=== PATIENT | female | born 1960 | race Caucasian/White ===

== ENCOUNTER 2016-11-14 17:38 | Observation (INO) | payer OTHER ==
[~2016-11-14] VITALS: Ht 167.6 cm; Wt 135.4 kg
[~2016-11-14 17:38] MED LIST: ACID REDUCER 1150 MG PO; AMARYL4 MG PO; ASPIRIN E.C.81 M1 PO; AUGMENTIN875 MG PO; Calcium Carbonate,Ca PO; Colace PO; DAILY VITAMIN1 EAC8 PO; Ditropan PO; GLIMEPIRIDE4 MG PO; KEFLEX500 MG PO; LEVEMIR INSULIN SQ; LEVEMIR100 UNIT/2 SC; LISINOPRIL20 MG PO; LO-DOSE ASPIRIN81 M1 PO; METFORMIN HCL500 MG PO; MULTIPLE VITAM1 EAC1 PO; PERCOCET 5/31 TABLET PO; PRAVASTATIN SOD40 MG PO; Pravachol PO; STOOL SOFTENER100 MG PO; TOFRANIL50 MG PO; Zantac PO; Zestril,Prinivil PO
[2016-11-14 18:27] LABS: HEMATOCRIT 34.9 % (36.0-46.0); MCH 29.6 PG (29.0-34.0); MCHC 34.4 G/DL (30.0-36.0); MCV 86.2 FL (83-99); MEAN PLAT.VOLUME 9.8 uM^3 (9.5-12.4); PLATELET COUNT 322 K/uL (156-360); RBC DIS.WIDTH-CV 13.7 % (11.8-14.6); RBC DIS.WIDTH-SD 42.2 % (39-53); RED BLOOD COUNT 4.05 M/uL (3.80-5.20); WHITE BLOOD COUNT 6.5 K/uL (4.1-10.2)
[2016-11-14 18:33] LABS: CHLORIDE 105 mEq/L (99-109); POTASSIUM 4.6 mEq/L (3.7-5.4); SODIUM 136 mEq/L (136-147)
[2016-11-14 18:34] LABS: GLUCOSE 153 mg/dL (70-99)
[2016-11-14 18:36] LABS: ANION GAP 7 MEQ/L (2-14)
[2016-11-14 18:38] LABS: GFR ESTIMATE (CALCULATED) > 59 mL/min/
[2016-11-14 18:39] LABS: UREA NITROGEN (BUN) 29 mg/dL (9-23)
[2016-11-14 18:45] LABS: TROP-I INTERPRETATION NEGATIVE; TROPONIN-I < 0.01 ng/mL (0.0-0.30)
[2016-11-14] MEDS ORDERED: CALCIUM 600 +1 EAC8 PO (20:09)
[2016-11-14] MEDS ORDERED: AMITIZA24 MICROGR PO (20:10)
[2016-11-14] MEDS ORDERED: ZANTAC150 MG PO (20:10)
[2016-11-14] MEDS ORDERED: ASCORBIC ACID500 M3 PO (20:10)
[2016-11-14] MEDS ORDERED: HYZAAR 100-21 TABLET PO (20:11)
[2016-11-14] MEDS ORDERED: JENTADUETO 2.51 EAC2 PO (20:11)
[2016-11-14] MEDS ORDERED: NEURONTIN300 MG PO (20:12)
[2016-11-14] MEDS ORDERED: HYDROCODON-ACE1 EAC8 PO (20:13)
[2016-11-14] MEDS ORDERED: FISH OIL 1,0001 EAC7 PO (20:13)
[2016-11-15 00:03] LABS: POINT-OF-CARE METER ID UU13113700
[2016-11-15 00:54] VITALS: BP 180/86
[2016-11-15 01:06] VITALS: BP 152/76
[2016-11-15 01:59] LABS: TROP-I INTERPRETATION NEGATIVE; TROPONIN-I < 0.01 ng/mL (0.0-0.30)
[2016-11-15 04:14] VITALS: BP 120/58
[2016-11-15 06:28] LABS: EOSINOPHIL (%) 2.2 % (0-5); EOSINOPHIL COUNT 0.1 K/uL (0-0.3); HEMATOCRIT 33.7 % (36.0-46.0); IMMATURE GRANULOCYTE (%) 0.2 % (0.0-0.7); LYMPHOCYTE COUNT 2.2 K/uL (1.0-2.8); MCH 29.6 PG (29.0-34.0); MCHC 33.8 G/DL (30.0-36.0); MCV 87.5 FL (83-99); MEAN PLAT.VOLUME 10.6 uM^3 (9.5-12.4); MONOCYTE (%) 6.5 % (3-12); MONOCYTE COUNT 0.4 K/uL (0-0.8); NEUTROPHIL (%) 53.9 % (45-76); NEUTROPHIL COUNT 3.3 K/uL (1.8-6.4); PLATELET COUNT 296 K/uL (156-360); RED BLOOD COUNT 3.85 M/uL (3.80-5.20)
[2016-11-15 06:54] LABS: ALKALINE PHOSPHATASE 66 IU/L (3-129); ANION GAP 6 MEQ/L (2-14); CHLORIDE 105 MEQ/L (99-109); GFR ESTIMATE (CALCULATED) > 59 mL/min/; POTASSIUM 4.1 MEQ/L (3.7-5.4); SAMPLE HEMOLYSIS CHECK 0; SAMPLE ICTERIC CHECK 0; SAMPLE LIPEMIA CHECK 0; SODIUM 137 MEQ/L (136-147); TOTAL BILIRUBIN 0.3 MG/DL (0.0-1.0); UREA NITROGEN (BUN) 26 mg/dL (9-23)
[2016-11-15 06:57] LABS: GLUCOSE 113 mg/dL (70-99)
[2016-11-15 07:46] VITALS: BP 117/65
[2016-11-15 09:50] LABS: TROP-I INTERPRETATION NEGATIVE; TROPONIN-I < 0.01 ng/mL (0.0-0.30)
[2016-11-15 11:45] VITALS: BP 131/63
[2016-11-15 11:53] LABS: POINT-OF-CARE METER ID UU13113700
[2016-11-15 15:41] VITALS: BP 140/70
[2016-11-15 17:20] LABS: POINT-OF-CARE METER ID UU13113700
[2016-11-15] MEDS ORDERED: CARVEDILOL12.5 MG PO (18:16)
[2016-11-15 18:30] LABS: TROP-I INTERPRETATION NEGATIVE; TROPONIN-I < 0.01 ng/mL (0.0-0.30)
== END 2016-11-15 19:45 | disposition home or self-care (01) ==
LOC: RME 17:38 → EME 17:38 → 5WEST 21:47 → EDOF 21:47 → 5WEST 23:31
PROVIDERS: Internal Medicine
DX: R07.9 Chest pain, unspecified (principal); I10 Essential (primary) hypertension; E11.9 Type 2 diabetes mellitus without complications; E66.01 Morbid (severe) obesity due to excess calories; Z68.42 Body mass index [BMI] 45.0-49.9, adult; M19.90 Unspecified osteoarthritis, unspecified site; Z85.41 Personal history of malignant neoplasm of cervix uteri; Z90.710 Acquired absence of both cervix and uterus; Z79.4 Long term (current) use of insulin; Z79.82 Long term (current) use of aspirin
CPT/HCPCS: 71020; 80048; 80053; 82948; 84484; 85025; 85027; 93005; 99281; 99285; G0378; J1650; J1815

== ENCOUNTER 2017-06-09 13:49 | Emergency (ER) | payer OTHER ==
[~2017-06-09] VITALS: Ht 172.7 cm; Wt 142.7 kg
[~2017-06-09 13:49] MED LIST changes: +AMITIZA24 MICROGR PO; +ASCORBIC ACID500 M3 PO; +CALCIUM 600 +1 EAC8 PO; +CARVEDILOL12.5 MG PO; +FISH OIL 1,0001 EAC7 PO; +HYDROCODON-ACE1 EAC8 PO; +HYZAAR 100-21 TABLET PO; +JENTADUETO 2.51 EAC2 PO; +NEURONTIN300 MG PO; +ZANTAC150 MG PO
[2017-06-09 14:09] LABS: POINT-OF-CARE METER ID UU13113778
[2017-06-09 15:14] LABS: ADD MIUA? YES; BILIRUBIN NEGATIVE; BLOOD SMALL; COLOR YELLOW ((YELLOW)); GLUCOSE (STRIP) >=500; KETONES NEGATIVE; LEUKOCYTES TRACE; NITRITE NEGATIVE; PROTEIN (STRIP) >=500; SPECIFIC GRAVITY 1.013 (1.000-1.030); UROBILINOGEN 0.2 MG/DL (0.2-1.0)
[2017-06-09 15:18] LABS: BACTERIA RARE /HPF; CALCIUM OXALATE CRYSTALS 1+ /HPF; EPITHELIAL CELLS 1+ /HPF; MUCUS NONE SEEN /LPF; WHITE BLOOD CELLS 20-30 /HPF (0-5)
[2017-06-09] MEDS ORDERED: KEFLEX500 MG PO (15:32)
[2017-06-09] MEDS ORDERED: PYRIDIUM200 MG PO (15:32)
[2017-06-09 15:38] VITALS: BP 160/96
== END 2017-06-09 15:38 | disposition home or self-care (01) ==
LOC: EME 13:49
PROVIDERS: Physician Assistant
DX: K08.89 Other specified disorders of teeth and supporting structures (principal); N39.0 Urinary tract infection, site not specified; K21.9 Gastro-esophageal reflux disease without esophagitis; I10 Essential (primary) hypertension; E78.5 Hyperlipidemia, unspecified; E11.9 Type 2 diabetes mellitus without complications; Z90.710 Acquired absence of both cervix and uterus; Z85.42 Personal history of malignant neoplasm of other parts of uterus; Z79.82 Long term (current) use of aspirin
CPT/HCPCS: 81003; 82948; 99281; 99284

== ENCOUNTER 2017-08-29 16:15 | Inpatient (IN) | payer OTHER ==
[~2017-08-29] VITALS: Ht 167.6 cm; Wt 136.6 kg
[~2017-08-29 16:15] MED LIST changes: -NEURONTIN300 MG PO; +NEURONTIN600 MG PO; +PYRIDIUM200 MG PO
[2017-08-29 16:46] LABS: POINT-OF-CARE METER ID UU13113778
[2017-08-29 17:37] LABS: HEMATOCRIT 33.5 % (36.0-46.0); MCHC 32.5 G/DL (30.0-36.0); MCV 89.1 FL (83-99); MEAN PLAT.VOLUME 9.9 uM^3 (9.5-12.4); PLATELET COUNT 286 K/uL (156-360); RBC DIS.WIDTH-CV 14.4 % (11.8-14.6); RBC DIS.WIDTH-SD 46.9 % (39-53); RED BLOOD COUNT 3.76 M/uL (3.80-5.20); WHITE BLOOD COUNT 7.2 K/uL (4.1-10.2)
[2017-08-29 17:45] LABS: CHLORIDE 106 mEq/L (99-109); POTASSIUM 4.5 mEq/L (3.7-5.4); SODIUM 136 mEq/L (136-147)
[2017-08-29 17:47] LABS: GLUCOSE 244 mg/dL (70-99)
[2017-08-29 17:49] LABS: ANION GAP 9 MEQ/L (2-14)
[2017-08-29 17:51] LABS: GFR ESTIMATE (CALCULATED) 17 mL/min/
[2017-08-29 17:52] LABS: UREA NITROGEN (BUN) 35 mg/dL (9-23)
[2017-08-29 18:37] LABS: ADD MIUA? YES; BILIRUBIN NEGATIVE; BLOOD SMALL; COLOR YELLOW ((YELLOW)); GLUCOSE (STRIP) 50; KETONES NEGATIVE; LEUKOCYTES LARGE; NITRITE NEGATIVE; PROTEIN (STRIP) 100; SPECIFIC GRAVITY 1.017 (1.000-1.030); UROBILINOGEN 0.2 MG/DL (0.2-1.0)
[2017-08-29 19:21] LABS: BACTERIA 4+ /HPF; CASTS NONE SEEN /LPF; CRYSTALS NONE SEEN; EPITHELIAL CELLS 1+ /HPF; MUCUS NONE SEEN /LPF; RED BLOOD CELLS 0-5 /HPF (0-5); UCUL ADDED? YES; WHITE BLOOD CELLS TNTC /HPF (0-5)
[2017-08-29] MEDS ORDERED: IRBESARTAN-HCT1 EAC1 PO (20:51)
[2017-08-29] MEDS ORDERED: HYDROCODON-ACE1 EAC9 PO (20:52)
[2017-08-29] MEDS ORDERED: TORSEMIDE20 MG PO (20:52)
[2017-08-29] MEDS ORDERED: POTASSIUM CHLO10 ME4 PO (20:53)
[2017-08-29 20:54] LABS: POINT-OF-CARE METER ID UU14100415
[2017-08-29] MEDS ORDERED: OMEPRAZOLE40 M1 PO (20:54)
[2017-08-29] MEDS ORDERED: GABAPENTIN600 MG PO (20:54)
[2017-08-29] MEDS ORDERED: LOSARTAN-HCTZ1 EAC1 PO (20:55)
[2017-08-29] MEDS ORDERED: ATORVASTATIN CA20 MG PO (20:55)
[2017-08-29] MEDS ORDERED: CARVEDILOL25 MG PO (20:59)
[2017-08-29 21:58] LABS: POINT-OF-CARE METER ID UU13113725
[2017-08-29 23:33] VITALS: BP 128/67
[2017-08-30 04:32] LABS: POINT-OF-CARE METER ID UU13113774
[2017-08-30 06:08] LABS: HEMATOCRIT 29.8 % (36.0-46.0); MCH 28.1 PG (29.0-34.0); MCHC 31.5 G/DL (30.0-36.0); MEAN PLAT.VOLUME 10.4 uM^3 (9.5-12.4); PLATELET COUNT 239 K/uL (156-360); RBC DIS.WIDTH-CV 14.3 % (11.8-14.6); RBC DIS.WIDTH-SD 46.5 % (39-53); RED BLOOD COUNT 3.35 M/uL (3.80-5.20); WHITE BLOOD COUNT 7.2 K/uL (4.1-10.2)
[2017-08-30 06:23] LABS: POINT-OF-CARE METER ID UU13113725; POINT-OF-CARE USER ID 611181321
[2017-08-30 07:40] VITALS: BP 108/52
[2017-08-30 11:26] VITALS: BP 132/68
[2017-08-30 11:28] LABS: POINT-OF-CARE METER ID UU13113725
[2017-08-30 16:53] LABS: POINT-OF-CARE METER ID UU13113774
[2017-08-30 17:39] VITALS: BP 121/79
[2017-08-30 19:57] VITALS: BP 150/70
[2017-08-30 21:15] LABS: POINT-OF-CARE METER ID UU13113725
[2017-08-30 23:58] VITALS: BP 141/67
[2017-08-31 04:28] VITALS: BP 129/61
[2017-08-31 06:29] LABS: POINT-OF-CARE METER ID UU13113774
[2017-08-31 06:34] LABS: HEMATOCRIT 29.6 % (36.0-46.0); MCH 29.9 PG (29.0-34.0); MCHC 33.4 G/DL (30.0-36.0); MCV 89.4 FL (83-99); MEAN PLAT.VOLUME 10.7 uM^3 (9.5-12.4); PLATELET COUNT 253 K/uL (156-360); RBC DIS.WIDTH-CV 14.6 % (11.8-14.6); RBC DIS.WIDTH-SD 47.3 % (39-53); RED BLOOD COUNT 3.31 M/uL (3.80-5.20); WHITE BLOOD COUNT 7.4 K/uL (4.1-10.2)
[2017-08-31 07:01] LABS: ANION GAP 6 MEQ/L (2-14); CHLORIDE 106 MEQ/L (99-109); GFR ESTIMATE (CALCULATED) 33 mL/min/; GLUCOSE 137 mg/dL (70-99); POTASSIUM 5.3 MEQ/L (3.7-5.4); SAMPLE HEMOLYSIS CHECK 0; SAMPLE ICTERIC CHECK 0; SAMPLE LIPEMIA CHECK 0; SODIUM 137 MEQ/L (136-147); UREA NITROGEN (BUN) 43 mg/dL (9-23)
[2017-08-31 07:45] VITALS: BP 118/56
[2017-08-31 11:03] LABS: POINT-OF-CARE METER ID UU13113774
[2017-08-31 11:53] VITALS: BP 130/60
[2017-08-31 16:49] LABS: POINT-OF-CARE METER ID UU13113725
[2017-08-31 21:19] LABS: POINT-OF-CARE METER ID UU13113774
[2017-09-01 00:23] VITALS: BP 172/80
[2017-09-01 06:19] LABS: POINT-OF-CARE METER ID UU13113725
[2017-09-01 08:00] VITALS: BP 147/71
[2017-09-01 11:15] LABS: POINT-OF-CARE METER ID UU13113725
[2017-09-01] MEDS ORDERED: LOSARTAN POTAS100 MG PO (11:58)
[2017-09-01] MEDS ORDERED: LEVEMIR100 UNIT/2 SC (12:02)
[2017-09-01] MEDS ORDERED: Zeasorb Antifungal T TP (12:08)
[2017-09-01 12:43] LABS: EOSINOPHIL (%) 1.8 % (0-5); EOSINOPHIL COUNT 0.1 K/uL (0-0.3); IMMATURE GRANULOCYTE (%) 0.3 % (0.0-0.7); INSTRUMENT ABS NEUTROPHIL CT 4.4 K/uL; LYMPHOCYTE COUNT 1.6 K/uL (1.0-2.8); MCH 28.7 PG (29.0-34.0); MCHC 32.3 G/DL (30.0-36.0); MCV 88.8 FL (83-99); MEAN PLAT.VOLUME 10.3 uM^3 (9.5-12.4); MONOCYTE (%) 7.1 % (3-12); MONOCYTE COUNT 0.5 K/uL (0-0.8); NEUTROPHIL (%) 66.5 % (45-76); NEUTROPHIL COUNT 4.4 K/uL (1.8-6.4); PLATELET COUNT 284 K/uL (156-360); RBC DIS.WIDTH-CV 14.1 % (11.8-14.6); RBC DIS.WIDTH-SD 46.1 % (39-53); RED BLOOD COUNT 3.94 M/uL (3.80-5.20); WHITE BLOOD COUNT 6.6 K/uL (4.1-10.2)
[2017-09-01 13:13] LABS: ALKALINE PHOSPHATASE 73 IU/L (3-129); ANION GAP 6 MEQ/L (2-14); CHLORIDE 102 MEQ/L (99-109); GLUCOSE 183 mg/dL (70-99); SAMPLE HEMOLYSIS CHECK 0; SAMPLE ICTERIC CHECK 0; SAMPLE LIPEMIA CHECK 0; SODIUM 133 MEQ/L (136-147); TOTAL BILIRUBIN 0.3 MG/DL (0.0-1.0); UREA NITROGEN (BUN) 38 mg/dL (9-23)
[2017-09-01 13:14] LABS: GFR ESTIMATE (CALCULATED) 50 mL/min/; POTASSIUM 6.4 MEQ/L (3.7-5.4)
[2017-09-01 15:54] LABS: ANION GAP 4 MEQ/L (2-14); CHLORIDE 102 MEQ/L (99-109); GFR ESTIMATE (CALCULATED) 41 mL/min/; GLUCOSE 237 mg/dL (70-99); SAMPLE HEMOLYSIS CHECK 0; SAMPLE ICTERIC CHECK 0; SAMPLE LIPEMIA CHECK 0; SODIUM 132 MEQ/L (136-147); UREA NITROGEN (BUN) 39 mg/dL (9-23)
[2017-09-01 15:56] LABS: POTASSIUM 6.8 MEQ/L (3.7-5.4)
[2017-09-01 16:00] VITALS: BP 160/83
[2017-09-01 16:32] LABS: POINT-OF-CARE METER ID UU13113725
[2017-09-01 18:48] LABS: ANION GAP 7 MEQ/L (2-14); CHLORIDE 101 MEQ/L (99-109); GFR ESTIMATE (CALCULATED) 41 mL/min/; GLUCOSE 293 mg/dL (70-99); POTASSIUM 5.7 MEQ/L (3.7-5.4); SAMPLE HEMOLYSIS CHECK 0; SAMPLE ICTERIC CHECK 0; SAMPLE LIPEMIA CHECK 0; SODIUM 132 MEQ/L (136-147); UREA NITROGEN (BUN) 37 mg/dL (9-23)
[2017-09-01 20:42] LABS: POINT-OF-CARE METER ID UU13113774
[2017-09-01 21:07] VITALS: BP 140/80
[2017-09-02 00:02] VITALS: BP 151/70
[2017-09-02 06:23] LABS: HEMATOCRIT 30.2 % (36.0-46.0); MCH 28.9 PG (29.0-34.0); MCHC 32.5 G/DL (30.0-36.0); MCV 89.1 FL (83-99); MEAN PLAT.VOLUME 10.8 uM^3 (9.5-12.4); PLATELET COUNT 248 K/uL (156-360); RBC DIS.WIDTH-CV 14.3 % (11.8-14.6); RBC DIS.WIDTH-SD 46.8 % (39-53); RED BLOOD COUNT 3.39 M/uL (3.80-5.20); WHITE BLOOD COUNT 4.5 K/uL (4.1-10.2)
[2017-09-02 06:31] LABS: POINT-OF-CARE METER ID UU13113774
[2017-09-02 06:50] LABS: ANION GAP 8 MEQ/L (2-14); CHLORIDE 107 MEQ/L (99-109); GFR ESTIMATE (CALCULATED) 50 mL/min/; POTASSIUM 5.4 MEQ/L (3.7-5.4); SAMPLE HEMOLYSIS CHECK 0; SAMPLE ICTERIC CHECK 0; SAMPLE LIPEMIA CHECK 0; UREA NITROGEN (BUN) 37 mg/dL (9-23)
[2017-09-02 06:51] LABS: GLUCOSE 92 mg/dL (70-99); SODIUM 139 MEQ/L (136-147)
[2017-09-02 07:22] LABS: Estimated Average Glucose 226 mg/dL (70-123); HEMOGLOBIN A1c (GLYCOHEMOGLOB) 9.5 % HGB (Below 5.7)
[2017-09-02 07:30] VITALS: BP 117/58
[2017-09-02] MEDS ORDERED: HYDROCHLOROTH12.5 M3 PO (09:57)
[2017-09-02] MEDS ORDERED: POLYETHYLENE GL17 GM PO (09:57)
[2017-09-02 11:05] LABS: POINT-OF-CARE METER ID UU13113725
== END 2017-09-02 13:30 | disposition home or self-care (01) | DRG 683 ==
LOC: EME 16:15 → 5EAST 19:38 → EDOF 19:38 → ENRESERV 19:42 → 5EAST 20:47
PROVIDERS: Family Medicine; Physician Assistant Medical
DX: N17.9 Acute kidney failure, unspecified (principal); E11.65 Type 2 diabetes mellitus with hyperglycemia; N39.0 Urinary tract infection, site not specified; E86.0 Dehydration; E87.5 Hyperkalemia; B36.9 Superficial mycosis, unspecified; R21 Rash and other nonspecific skin eruption; I10 Essential (primary) hypertension; E78.5 Hyperlipidemia, unspecified; G89.29 Other chronic pain; M54.9 Dorsalgia, unspecified; K02.9 Dental caries, unspecified; K21.9 Gastro-esophageal reflux disease without esophagitis; E66.01 Morbid (severe) obesity due to excess calories; Z68.42 Body mass index [BMI] 45.0-49.9, adult; Z79.4 Long term (current) use of insulin; Z85.41 Personal history of malignant neoplasm of cervix uteri; Z91.14 Patient's other noncompliance with medication regimen; Z91.11 Patient's noncompliance with dietary regimen; Z79.82 Long term (current) use of aspirin; Z88.2 Allergy status to sulfonamides
CPT/HCPCS: 80048; 80048 91; 80053; 81003; 82948; 83036; 85025; 85027; 87077; 87086; 87186; 93005; 99281; 99285; J0696; J1815; J1885; J7050

== ENCOUNTER 2017-09-18 20:23 | Inpatient (IN) | payer OTHER ==
[~2017-09-18] VITALS: Ht 170.2 cm; Wt 155.5 kg
[~2017-09-18 20:23] MED LIST changes: +ATORVASTATIN CA20 MG PO; +CARVEDILOL25 MG PO; +GABAPENTIN600 MG PO; +HYDROCHLOROTH12.5 M3 PO; +HYDROCODON-ACE1 EAC9 PO; +IRBESARTAN-HCT1 EAC1 PO; +LOSARTAN POTAS100 MG PO; +LOSARTAN-HCTZ1 EAC1 PO; +OMEPRAZOLE40 M1 PO; +POLYETHYLENE GL17 GM PO; +POTASSIUM CHLO10 ME4 PO; +TORSEMIDE20 MG PO; +Zeasorb Antifungal T TP
[2017-09-18 22:23] LABS: EOSINOPHIL (%) 2.2 % (0-5); EOSINOPHIL COUNT 0.2 K/uL (0-0.3); HEMATOCRIT 31.4 % (36.0-46.0); IMMATURE GRANULOCYTE (%) 0.4 % (0.0-0.7); LYMPHOCYTE COUNT 1.4 K/uL (1.0-2.8); MCH 29.2 PG (29.0-34.0); MCHC 31.8 G/DL (30.0-36.0); MCV 91.5 FL (83-99); MEAN PLAT.VOLUME 10.1 uM^3 (9.5-12.4); MONOCYTE (%) 5.4 % (3-12); MONOCYTE COUNT 0.4 K/uL (0-0.8); NEUTROPHIL (%) 74.1 % (45-76); PLATELET COUNT 325 K/uL (156-360); RBC DIS.WIDTH-CV 14.8 % (11.8-14.6); RBC DIS.WIDTH-SD 49.6 % (39-53); RED BLOOD COUNT 3.43 M/uL (3.80-5.20); WHITE BLOOD COUNT 8.1 K/uL (4.1-10.2)
[2017-09-18 22:35] LABS: CHLORIDE 112 mEq/L (99-109)
[2017-09-18 22:36] LABS: POTASSIUM 4.7 mEq/L (3.7-5.4); SODIUM 141 mEq/L (136-147)
[2017-09-18 22:38] LABS: GLUCOSE 108 mg/dL (70-99)
[2017-09-18 22:39] LABS: ANION GAP 6 MEQ/L (2-14)
[2017-09-18 22:40] LABS: TOTAL BILIRUBIN 0.3 mg/dL (0.0-1.0)
[2017-09-18 22:41] LABS: ALKALINE PHOSPHATASE 83 IU/L (3-129); GFR ESTIMATE (CALCULATED) 45 mL/min/
[2017-09-18 22:43] LABS: TROP-I INTERPRETATION NEGATIVE; TROPONIN-I < 0.01 ng/mL (0.0-0.30)
[2017-09-18 22:43] LABS: UREA NITROGEN (BUN) 25 mg/dL (9-23)
[2017-09-19] MEDS ORDERED: HYDROCHLOROTH12.5 M3 PO (01:36)
[2017-09-19] MEDS ORDERED: MIRALAX17 GM PO (01:36)
[2017-09-19] MEDS ORDERED: COLACE100 MG PO (01:37)
[2017-09-19] MEDS ORDERED: BYSTOLIC5 MG PO (01:37)
[2017-09-19] MEDS ORDERED: INVOKAMET XR 11 EAC1 PO (01:37)
[2017-09-19] MEDS ORDERED: NOVOLOG PE100 UNITS/ SC ×3 (01:38)
[2017-09-19 05:38] VITALS: BP 197/74
[2017-09-19 06:17] LABS: TROP-I INTERPRETATION NEGATIVE; TROPONIN-I 0.01 ng/mL (0.0-0.30)
[2017-09-19 07:14] VITALS: BP 181/74
[2017-09-19 08:54] LABS: POINT-OF-CARE METER ID UU14174216
[2017-09-19 11:18] VITALS: BP 162/69
[2017-09-19 11:45] LABS: POINT-OF-CARE METER ID UU13113781
[2017-09-19 14:12] LABS: TROP-I INTERPRETATION NEGATIVE; TROPONIN-I 0.01 ng/mL (0.0-0.30)
[2017-09-19 16:32] VITALS: BP 148/69
[2017-09-19 17:17] LABS: POINT-OF-CARE METER ID UU13113781
[2017-09-19 19:24] VITALS: BP 162/71
[2017-09-19 20:53] LABS: POINT-OF-CARE METER ID UU13113698
[2017-09-19 21:54] LABS: TROP-I INTERPRETATION NEGATIVE; TROPONIN-I 0.02 ng/mL (0.0-0.30)
[2017-09-19 22:43] LABS: POINT-OF-CARE METER ID UU14314088
[2017-09-19 23:09] VITALS: BP 138/65
[2017-09-20 01:33] LABS: POINT-OF-CARE METER ID UU14174216
[2017-09-20 03:06] VITALS: BP 142/67
[2017-09-20 07:14] VITALS: BP 188/77
[2017-09-20 07:40] LABS: POINT-OF-CARE METER ID UU14174216
[2017-09-20 11:21] LABS: POINT-OF-CARE METER ID UU14174216
[2017-09-20 11:48] VITALS: BP 185/83
[2017-09-20 12:16] LABS: ANION GAP 8 MEQ/L (2-14); CHLORIDE 103 MEQ/L (99-109); GFR ESTIMATE (CALCULATED) 50 mL/min/; POTASSIUM 4.4 MEQ/L (3.7-5.4); SAMPLE HEMOLYSIS CHECK 0; SAMPLE ICTERIC CHECK 0; SAMPLE LIPEMIA CHECK 0; SODIUM 139 MEQ/L (136-147); UREA NITROGEN (BUN) 25 mg/dL (9-23)
[2017-09-20 12:37] LABS: GLUCOSE 69 mg/dL (70-99)
[2017-09-20 16:47] VITALS: BP 163/72
[2017-09-20 16:51] LABS: POINT-OF-CARE METER ID UU14174216
[2017-09-20 19:43] VITALS: BP 158/73
[2017-09-20 21:11] LABS: POINT-OF-CARE METER ID UU13113781
[2017-09-20 23:26] VITALS: BP 145/65
[2017-09-21 04:38] VITALS: BP 146/61
[2017-09-21 05:54] LABS: HEMATOCRIT 26.2 % (36.0-46.0); MCH 28.6 PG (29.0-34.0); MCHC 32.1 G/DL (30.0-36.0); MCV 89.1 FL (83-99); PLATELET COUNT 282 K/uL (156-360); RBC DIS.WIDTH-CV 14.6 % (11.8-14.6); RBC DIS.WIDTH-SD 47.3 % (39-53); RED BLOOD COUNT 2.94 M/uL (3.80-5.20); WHITE BLOOD COUNT 4.6 K/uL (4.1-10.2)
[2017-09-21 07:30] LABS: ANION GAP 8 MEQ/L (2-14); CHLORIDE 104 MEQ/L (99-109); GFR ESTIMATE (CALCULATED) 50 mL/min/; GLUCOSE 62 mg/dL (70-99); POTASSIUM 4.4 MEQ/L (3.7-5.4); SAMPLE HEMOLYSIS CHECK 0; SAMPLE ICTERIC CHECK 0; SAMPLE LIPEMIA CHECK 0; SODIUM 139 MEQ/L (136-147); UREA NITROGEN (BUN) 30 mg/dL (9-23)
[2017-09-21 08:17] LABS: POINT-OF-CARE METER ID UU14174216
[2017-09-21 08:20] VITALS: BP 169/81
[2017-09-21 08:41] LABS: POINT-OF-CARE METER ID UU14174216
[2017-09-21 08:55] LABS: POINT-OF-CARE METER ID UU13113698
[2017-09-21 11:52] LABS: POINT-OF-CARE METER ID UU13113698
[2017-09-21 12:59] VITALS: BP 163/79
[2017-09-21] MEDS ORDERED: PERCOCET 5/31 TABLET PO (14:37)
[2017-09-21 16:29] LABS: POINT-OF-CARE METER ID UU14174216
== END 2017-09-21 16:37 | disposition home or self-care (01) | DRG 189 ==
LOC: EME → EDBD 20:23 → 4EAST 09-19 00:50 → EDOF 09-19 00:50 → ENRESERV 09-19 01:04 → 4EAST 09-19 05:18
PROVIDERS: Emergency Medicine; Family Medicine; Internal Medicine Cardiovascular Disease
DX: J81.0 Acute pulmonary edema (principal); Z68.43 Body mass index [BMI] 50.0-59.9, adult; J98.11 Atelectasis; J90 Pleural effusion, not elsewhere classified; R09.02 Hypoxemia; E66.01 Morbid (severe) obesity due to excess calories; E78.5 Hyperlipidemia, unspecified; I50.32 Chronic diastolic (congestive) heart failure; I11.0 Hypertensive heart disease with heart failure; I16.0 Hypertensive urgency; E11.65 Type 2 diabetes mellitus with hyperglycemia; K21.9 Gastro-esophageal reflux disease without esophagitis; M19.90 Unspecified osteoarthritis, unspecified site; J40 Bronchitis, not specified as acute or chronic; G43.909 Migraine, unspecified, not intractable, without status migrainosus; M54.9 Dorsalgia, unspecified; G89.4 Chronic pain syndrome; Z60.2 Problems related to living alone; G47.30 Sleep apnea, unspecified; Z79.4 Long term (current) use of insulin; Z85.42 Personal history of malignant neoplasm of other parts of uterus; Z90.710 Acquired absence of both cervix and uterus; Z85.41 Personal history of malignant neoplasm of cervix uteri; Z88.5 Allergy status to narcotic agent; Z88.2 Allergy status to sulfonamides; Z90.49 Acquired absence of other specified parts of digestive tract; Z80.51 Family history of malignant neoplasm of kidney; Z82.49 Family history of ischemic heart disease and other diseases of the circulatory system; Z83.3 Family history of diabetes mellitus
CPT/HCPCS: 71020; 71275; 80048; 80053; 82948; 83880; 84484; 85025; 85027; 85379; 93005; 93306; 99281; 99285; J1815; J1940

== ENCOUNTER 2018-01-14 15:08 | Inpatient (IN) | payer OTHER ==
[~2018-01-14] VITALS: Ht 165.1 cm; Wt 154.5 kg
[~2018-01-14 15:08] MED LIST changes: +BYSTOLIC5 MG PO; -CARVEDILOL25 MG PO; +COLACE100 MG PO; +COREG12.5 M1 PO; +INVOKAMET XR 11 EAC1 PO; +MIRALAX17 GM PO; +NOVOLOG PE100 UNITS/ SC
[2018-01-14 16:50] LABS: BASOPHIL (%) 0.5 % (0-1); EOSINOPHIL (%) 1.9 % (0-5); EOSINOPHIL COUNT 0.1 K/uL (0-0.3); HEMATOCRIT 37.1 % (36.0-46.0); HEMOGLOBIN 12.5 G/DL (11.9-15.5); IMMATURE GRANULOCYTE (%) 0.2 % (0.0-0.7); LYMPHOCYTE (%) 22.7 % (15-42); LYMPHOCYTE COUNT 1.5 K/uL (1.0-2.8); MCH 28.4 PG (29.0-34.0); MCHC 33.7 G/DL (30.0-36.0); MCV 84.3 FL (83-99); MONOCYTE (%) 4.8 % (3-12); MONOCYTE COUNT 0.3 K/uL (0-0.8); NEUTROPHIL (%) 69.9 % (45-76); NEUTROPHIL COUNT 4.5 K/uL (1.8-6.4); PLATELET COUNT 266 K/uL (156-360); RBC DIS.WIDTH-CV 14.5 % (11.8-14.6); RBC DIS.WIDTH-SD 44.6 % (39-53); WHITE BLOOD COUNT 6.4 K/uL (4.1-10.2)
[2018-01-14 17:00] LABS: CARBON DIOXIDE (BICARBONATE) 31.8 MEQ/L (20-31)
[2018-01-14 17:04] LABS: ALBUMIN 3.3 g/dL (3.2-4.8)
[2018-01-14 17:05] LABS: CHLORIDE 109 mEq/L (99-109); POTASSIUM 3.8 mEq/L (3.7-5.4); SODIUM 142 mEq/L (136-147)
[2018-01-14 17:07] LABS: GLUCOSE 163 mg/dL (70-99); TOTAL PROTEIN 6.5 g/dL (6.4-8.3)
[2018-01-14 17:09] LABS: TOTAL BILIRUBIN 0.4 mg/dL (0.0-1.0)
[2018-01-14 17:10] LABS: ALKALINE PHOSPHATASE 81 IU/L (3-129)
[2018-01-14 17:11] LABS: CREATININE 1.1 mg/dL (0.6-1.3); GFR ESTIMATE (CALCULATED) 55 mL/min/
[2018-01-14 17:12] LABS: TROP-I INTERPRETATION NEGATIVE; TROPONIN-I 0.04 ng/mL (0.0-0.30)
[2018-01-14 17:12] LABS: AST (GOT) 12 IU/L (2-34); UREA NITROGEN (BUN) 22 mg/dL (9-23)
[2018-01-14 17:13] LABS: ALT (GPT) 6 IU/L (3-49)
[2018-01-14] MEDS ORDERED: DEMADEX10 MG PO (20:46)
[2018-01-14] MEDS ORDERED: ZANTAC300 MG PO (20:46)
[2018-01-14] MEDS ORDERED: K-TAB10 MEQ PO (20:47)
[2018-01-14 21:43] LABS: TROP-I INTERPRETATION NEGATIVE; TROPONIN-I 0.03 ng/mL (0.0-0.30)
[2018-01-15 01:25] VITALS: BP 179/99
[2018-01-15 05:34] LABS: TROP-I INTERPRETATION NEGATIVE; TROPONIN-I 0.02 ng/mL (0.0-0.30)
[2018-01-15 05:50] VITALS: BP 133/101
[2018-01-15 07:37] VITALS: BP 144/83
[2018-01-15 12:00] VITALS: BP 163/69
[2018-01-15 16:06] VITALS: BP 198/95
[2018-01-15 20:45] VITALS: BP 136/79
[2018-01-16] VITALS (7 sets, daily range): BP systolic 125–138; BP diastolic 57–96
[2018-01-16 05:47] LABS: HEMATOCRIT 35.7 % (36.0-46.0); HEMOGLOBIN 11.4 G/DL (11.9-15.5); MCH 27.7 PG (29.0-34.0); MCHC 31.9 G/DL (30.0-36.0); MCV 86.7 FL (83-99); PLATELET COUNT 306 K/uL (156-360); RBC DIS.WIDTH-CV 14.8 % (11.8-14.6); RBC DIS.WIDTH-SD 47.5 % (39-53); RED BLOOD COUNT 4.12 M/uL (3.80-5.20); WHITE BLOOD COUNT 9.4 K/uL (4.1-10.2)
[2018-01-16 06:08] LABS: CHLORIDE 103 MEQ/L (99-109); CREATININE 1.5 MG/DL (0.6-1.3); GFR ESTIMATE (CALCULATED) 38 mL/min/; GLUCOSE 61 mg/dL (70-99); POTASSIUM 4.6 MEQ/L (3.7-5.4); SODIUM 137 MEQ/L (136-147); UREA NITROGEN (BUN) 31 mg/dL (9-23)
[2018-01-16 10:40] LABS: HEMOGLOBIN A1c (GLYCOHEMOGLOB) 6.2 % (Below 5.7)
[2018-01-16 11:37] LABS: C DIFF TOXIN NEGATIVE (NEGATIVE)
[2018-01-17 04:26] VITALS: BP 98/53
[2018-01-17 07:26] VITALS: BP 140/60
[2018-01-17 07:55] LABS: BASOPHIL (%) 0.2 % (0-1); EOSINOPHIL (%) 2.4 % (0-5); EOSINOPHIL COUNT 0.2 K/uL (0-0.3); HEMATOCRIT 34.6 % (36.0-46.0); IMMATURE GRANULOCYTE (%) 0.3 % (0.0-0.7); LYMPHOCYTE (%) 13.9 % (15-42); LYMPHOCYTE COUNT 1.2 K/uL (1.0-2.8); MCH 28.2 PG (29.0-34.0); MCHC 31.8 G/DL (30.0-36.0); MCV 88.7 FL (83-99); MONOCYTE (%) 8.3 % (3-12); MONOCYTE COUNT 0.7 K/uL (0-0.8); NEUTROPHIL (%) 74.9 % (45-76); NEUTROPHIL COUNT 6.5 K/uL (1.8-6.4); PLATELET COUNT 250 K/uL (156-360); RBC DIS.WIDTH-SD 48.3 % (39-53); WHITE BLOOD COUNT 8.7 K/uL (4.1-10.2)
[2018-01-17 08:18] LABS: CHLORIDE 110 MEQ/L (99-109); GFR ESTIMATE (CALCULATED) 27 mL/min/; GLUCOSE 138 mg/dL (70-99); SODIUM 134 MEQ/L (136-147); UREA NITROGEN (BUN) 43 mg/dL (9-23)
[2018-01-17 11:20] VITALS: BP 126/60
[2018-01-17 15:23] VITALS: BP 137/63
[2018-01-17 17:05] LABS: CREATINE KINASE 206 IU/L (1-294); TOTAL CK 206 IU/L (1-294)
[2018-01-17 17:06] LABS: APPEARANCE CLOUDY ((CLEAR)); BILIRUBIN NEGATIVE; BLOOD MODERATE; COLOR YELLOW ((YELLOW)); GLUCOSE (STRIP) NEGATIVE; KETONES NEGATIVE; LEUKOCYTES LARGE; NITRITE POSITIVE; PROTEIN (STRIP) 100; SPECIFIC GRAVITY 1.006 (1.000-1.030); UROBILINOGEN 0.2 MG/DL (0.2-1.0)
[2018-01-17 17:21] LABS: CK-MB 3.7 ng/mL (0.0-4.9); CKMB RELATIVE INDEX 1.8 (0.0-3.9)
[2018-01-17 17:28] LABS: UR CREATININE CONCENTRATION 57.2 MG/DL
[2018-01-17 17:43] LABS: BACTERIA 3+ /HPF; EPITHELIAL CELLS RARE /HPF; MUCUS NONE SEEN /LPF; RED BLOOD CELLS 0-5 /HPF (0-5); WHITE BLOOD CELLS 20-30 /HPF (0-5)
[2018-01-17 20:25] VITALS: BP 132/65
[2018-01-17 23:57] VITALS: BP 132/58
[2018-01-18 04:12] VITALS: BP 124/50
[2018-01-18 07:01] LABS: BASOPHIL (%) 0.3 % (0-1); EOSINOPHIL COUNT 0.2 K/uL (0-0.3); HEMATOCRIT 30.1 % (36.0-46.0); HEMOGLOBIN 9.5 G/DL (11.9-15.5); IMMATURE GRANULOCYTE (%) 0.3 % (0.0-0.7); LYMPHOCYTE (%) 24.5 % (15-42); LYMPHOCYTE COUNT 1.6 K/uL (1.0-2.8); MCH 27.7 PG (29.0-34.0); MCHC 31.6 G/DL (30.0-36.0); MCV 87.8 FL (83-99); MONOCYTE (%) 6.8 % (3-12); MONOCYTE COUNT 0.5 K/uL (0-0.8); NEUTROPHIL (%) 65.1 % (45-76); NEUTROPHIL COUNT 4.3 K/uL (1.8-6.4); PLATELET COUNT 253 K/uL (156-360); RBC DIS.WIDTH-CV 14.7 % (11.8-14.6); RBC DIS.WIDTH-SD 47.3 % (39-53); RED BLOOD COUNT 3.43 M/uL (3.80-5.20); WHITE BLOOD COUNT 6.6 K/uL (4.1-10.2)
[2018-01-18 07:13] VITALS: BP 122/60
[2018-01-18 07:29] LABS: CHLORIDE 111 MEQ/L (99-109); CREATININE 1.6 MG/DL (0.6-1.3); GFR ESTIMATE (CALCULATED) 36 mL/min/; GLUCOSE 110 mg/dL (70-99); POTASSIUM 4.8 MEQ/L (3.7-5.4); SODIUM 136 MEQ/L (136-147); UREA NITROGEN (BUN) 43 mg/dL (9-23)
[2018-01-18 11:39] VITALS: BP 122/63
[2018-01-18 15:22] VITALS: BP 118/65
[2018-01-18 15:50] LABS: IRON 41 MCG/DL (35-150); TRANSFERRIN (TIBC) 182.8 mg/dL (215-380); TRANSFERRIN SATUR. 22 % (20-55)
[2018-01-18 18:21] LABS: URINE TOTAL PROTEIN 101 MG/DL (0-10)
[2018-01-18 19:57] VITALS: BP 139/63
[2018-01-18 23:31] VITALS: BP 157/70
[2018-01-19 03:35] VITALS: BP 115/57
[2018-01-19 06:58] LABS: CHLORIDE 108 MEQ/L (99-109); CREATININE 1.5 MG/DL (0.6-1.3); GFR ESTIMATE (CALCULATED) 38 mL/min/; GLUCOSE 92 mg/dL (70-99); POTASSIUM 4.9 MEQ/L (3.7-5.4); SODIUM 139 MEQ/L (136-147); UREA NITROGEN (BUN) 46 mg/dL (9-23)
[2018-01-19 07:26] VITALS: BP 154/70
[2018-01-19 10:27] LABS: FOLIC ACID (FOLATE) 8.2 NG/ML (5.0-22.0)
[2018-01-19 11:16] VITALS: BP 176/84
[2018-01-19 15:23] VITALS: BP 149/65
[2018-01-19 20:08] VITALS: BP 151/70; BP 170/74
[2018-01-20 00:10] VITALS: BP 159/72
[2018-01-20 06:16] LABS: HEMATOCRIT 29.8 % (36.0-46.0); HEMOGLOBIN 9.6 G/DL (11.9-15.5); MCHC 32.2 G/DL (30.0-36.0); MCV 86.9 FL (83-99); PLATELET COUNT 244 K/uL (156-360); RBC DIS.WIDTH-SD 47.9 % (39-53); RED BLOOD COUNT 3.43 M/uL (3.80-5.20); WHITE BLOOD COUNT 5.5 K/uL (4.1-10.2)
[2018-01-20 06:41] LABS: ALBUMIN 2.8 G/DL (3.2-4.8); CHLORIDE 109 MEQ/L (99-109); CREATININE 1.6 MG/DL (0.6-1.3); GFR ESTIMATE (CALCULATED) 36 mL/min/; GLUCOSE 144 mg/dL (70-99); POTASSIUM 4.9 MEQ/L (3.7-5.4); SODIUM 137 MEQ/L (136-147); UREA NITROGEN (BUN) 51 mg/dL (9-23)
[2018-01-20 07:15] VITALS: BP 130/62
[2018-01-20 23:23] VITALS: BP 166/80
[2018-01-21 06:41] LABS: CHLORIDE 113 MEQ/L (99-109); CREATININE 1.3 MG/DL (0.6-1.3); GFR ESTIMATE (CALCULATED) 45 mL/min/; GLUCOSE 157 mg/dL (70-99); POTASSIUM 5.3 MEQ/L (3.7-5.4); SODIUM 138 MEQ/L (136-147); UREA NITROGEN (BUN) 55 mg/dL (9-23)
[2018-01-21 07:06] LABS: ALBUMIN 2.9 G/DL (3.2-4.8); ALKALINE PHOSPHATASE 53 IU/L (3-129); ALT (GPT) 13 IU/L (3-49); AST (GOT) 22 IU/L (2-34); TOTAL BILIRUBIN 0.2 MG/DL (0.0-1.0); TOTAL PROTEIN 5.2 G/DL (6.4-8.3)
[2018-01-21 07:10] LABS: HEMOGLOBIN 9.9 G/DL (11.9-15.5); MCH 27.9 PG (29.0-34.0); MCHC 31.9 G/DL (30.0-36.0); MCV 87.3 FL (83-99); PLATELET COUNT 293 K/uL (156-360); RBC DIS.WIDTH-SD 48.3 % (39-53); RED BLOOD COUNT 3.55 M/uL (3.80-5.20); WHITE BLOOD COUNT 5.4 K/uL (4.1-10.2)
[2018-01-21 07:48] VITALS: BP 141/73
[2018-01-21 08:00] VITALS: BP 178/79
[2018-01-21 08:06] VITALS: BP 161/74
[2018-01-21 09:53] VITALS: BP 133/62
[2018-01-21 11:13] VITALS: BP 163/72
[2018-01-21 15:47] VITALS: BP 177/79
[2018-01-21] MEDS ORDERED: CYANOCOBALAM1000 MCG PO (18:07)
[2018-01-21] MEDS ORDERED: VITAMIN D-32000 UNI2 PO (18:07)
[2018-01-21] MEDS ORDERED: CLOTRIMAZOLE AF15 G2 TP (18:08)
== END 2018-01-21 19:20 | disposition home or self-care (01) | DRG 305 ==
LOC: EME 15:08 → 4EAST 21:20 → EDOF 21:20 → ENRESERV 21:25 → 4EAST 01-15 01:25 → ENRESERV 01-16 21:02 → 2EAST 01-16 21:37
PROVIDERS: Emergency Medicine; Family Medicine; Internal Medicine
DX: I16.1 Hypertensive emergency (principal); Z68.43 Body mass index [BMI] 50.0-59.9, adult; N17.9 Acute kidney failure, unspecified; J90 Pleural effusion, not elsewhere classified; I50.32 Chronic diastolic (congestive) heart failure; E66.01 Morbid (severe) obesity due to excess calories; I13.0 Hypertensive heart and chronic kidney disease with heart failure and stage 1 through stage 4 chronic kidney disease, or unspecified chronic kidney disease; E11.22 Type 2 diabetes mellitus with diabetic chronic kidney disease; E86.0 Dehydration; E11.42 Type 2 diabetes mellitus with diabetic polyneuropathy; E11.21 Type 2 diabetes mellitus with diabetic nephropathy; G89.4 Chronic pain syndrome; E78.5 Hyperlipidemia, unspecified; I25.10 Atherosclerotic heart disease of native coronary artery without angina pectoris; E87.5 Hyperkalemia; E87.1 Hypo-osmolality and hyponatremia; E87.2 Acidosis; D63.1 Anemia in chronic kidney disease; E83.51 Hypocalcemia; K21.9 Gastro-esophageal reflux disease without esophagitis; E27.9 Disorder of adrenal gland, unspecified; N28.1 Cyst of kidney, acquired; E53.8 Deficiency of other specified B group vitamins; R32 Unspecified urinary incontinence; Z79.4 Long term (current) use of insulin; Z85.41 Personal history of malignant neoplasm of cervix uteri; Z91.14 Patient's other noncompliance with medication regimen; Z90.710 Acquired absence of both cervix and uterus; Z85.42 Personal history of malignant neoplasm of other parts of uterus; Z80.51 Family history of malignant neoplasm of kidney; Z82.49 Family history of ischemic heart disease and other diseases of the circulatory system; N18.3 Chronic kidney disease, stage 3 (moderate)
CPT/HCPCS: 71046; 71275; 76770; 80048; 80053; 80069; 81003; 82306; 82436; 82550; 82553; 82565; 82570; 82607; 82746; 82803; 82948; 83036; 83540; 83930; 84156; 84300; 84466; 84484; 84520; 84540; 85025; 85027; 85610; 86334; 86335; 87493; 87506; 93005; 97530 GO; 99281; 99285; J0360; J1650; J1815; J2270; J2405; J3420; J7030

== ENCOUNTER 2018-01-26 09:50 | Observation (INO) | payer OTHER ==
[~2018-01-26] VITALS: Ht 165.1 cm; Wt 159.0 kg
[~2018-01-26 09:50] MED LIST changes: +CLOTRIMAZOLE AF15 G2 TP; +CYANOCOBALAM1000 MCG PO; +DEMADEX10 MG PO; +K-TAB10 MEQ PO; +VITAMIN D-32000 UNI2 PO; +ZANTAC300 MG PO
[2018-01-26 10:50] LABS: BASOPHIL (%) 0.3 % (0-1); EOSINOPHIL (%) 2.5 % (0-5); EOSINOPHIL COUNT 0.2 K/uL (0-0.3); HEMATOCRIT 29.5 % (36.0-46.0); HEMOGLOBIN 9.5 G/DL (11.9-15.5); IMMATURE GRANULOCYTE (%) 0.3 % (0.0-0.7); LYMPHOCYTE (%) 20.6 % (15-42); LYMPHOCYTE COUNT 1.5 K/uL (1.0-2.8); MCH 28.4 PG (29.0-34.0); MCHC 32.2 G/DL (30.0-36.0); MCV 88.1 FL (83-99); MONOCYTE (%) 6.6 % (3-12); MONOCYTE COUNT 0.5 K/uL (0-0.8); NEUTROPHIL (%) 69.7 % (45-76); NEUTROPHIL COUNT 5.1 K/uL (1.8-6.4); NRBC (%) 0.3 /100 WBC (0-0); PLATELET COUNT 298 K/uL (156-360); RBC DIS.WIDTH-CV 15.2 % (11.8-14.6); RBC DIS.WIDTH-SD 48.7 % (39-53); RED BLOOD COUNT 3.35 M/uL (3.80-5.20); WHITE BLOOD COUNT 7.3 K/uL (4.1-10.2)
[2018-01-26 11:02] LABS: CHLORIDE 110 mEq/L (99-109); POTASSIUM 5.1 mEq/L (3.7-5.4); SODIUM 138 mEq/L (136-147)
[2018-01-26 11:04] LABS: GLUCOSE 92 mg/dL (70-99)
[2018-01-26 11:08] LABS: CREATININE 1.1 mg/dL (0.6-1.3); GFR ESTIMATE (CALCULATED) 55 mL/min/
[2018-01-26 11:09] LABS: UREA NITROGEN (BUN) 37 mg/dL (9-23)
[2018-01-26 12:14] LABS: APPEARANCE CLOUDY ((CLEAR)); BILIRUBIN NEGATIVE; BLOOD MODERATE; COLOR YELLOW ((YELLOW)); GLUCOSE (STRIP) NEGATIVE; KETONES NEGATIVE; LEUKOCYTES MODERATE; NITRITE NEGATIVE; PROTEIN (STRIP) >=500; SPECIFIC GRAVITY 1.013 (1.000-1.030); UROBILINOGEN 0.2 MG/DL (0.2-1.0)
[2018-01-26 12:21] LABS: BACTERIA 1+ /HPF; EPITHELIAL CELLS 1+ /HPF; MUCUS TRACE /LPF; WHITE BLOOD CELLS TNTC /HPF (0-5)
[2018-01-26] MEDS ORDERED: PERCOCET 5/31 TABLET PO (14:28)
[2018-01-26] MEDS ORDERED: CIPRO500 MG PO (14:28)
[2018-01-26 21:10] VITALS: BP 179/77
[2018-01-27 00:09] VITALS: BP 167/72
[2018-01-27 08:27] VITALS: BP 143/73
[2018-01-27 17:20] VITALS: BP 137/81
== END 2018-01-27 20:28 | disposition home or self-care (01) ==
LOC: EME → EDBD 09:50 → 5WEST 19:14 → EDOF 19:14 → 5WEST 19:14 → EDOF 19:14 → CANRESERV 19:31 → ENRESERV 19:31 → 5WEST 20:48
PROVIDERS: Emergency Medicine; Family Medicine
DX: G89.11 Acute pain due to trauma (principal); S32.018A Other fracture of first lumbar vertebra, initial encounter for closed fracture; S32.028A Other fracture of second lumbar vertebra, initial encounter for closed fracture; W01.0XXA Fall on same level from slipping, tripping and stumbling without subsequent striking against object, initial encounter; N39.0 Urinary tract infection, site not specified; G89.4 Chronic pain syndrome; Z79.891 Long term (current) use of opiate analgesic; E11.9 Type 2 diabetes mellitus without complications; Z79.4 Long term (current) use of insulin; I10 Essential (primary) hypertension; E78.5 Hyperlipidemia, unspecified; K21.9 Gastro-esophageal reflux disease without esophagitis; E66.01 Morbid (severe) obesity due to excess calories; Z68.43 Body mass index [BMI] 50.0-59.9, adult; Z79.82 Long term (current) use of aspirin; M19.90 Unspecified osteoarthritis, unspecified site; Z90.710 Acquired absence of both cervix and uterus; Z85.41 Personal history of malignant neoplasm of cervix uteri; Z90.49 Acquired absence of other specified parts of digestive tract; Z82.49 Family history of ischemic heart disease and other diseases of the circulatory system; Z80.1 Family history of malignant neoplasm of trachea, bronchus and lung; Z80.51 Family history of malignant neoplasm of kidney; Z88.2 Allergy status to sulfonamides; Z88.5 Allergy status to narcotic agent
CPT/HCPCS: 72131; 74176; 80048; 81003; 82948; 85025; 97530 GO; 99281; 99285; G0378; G8978 GP CM; G8979 GP CL; G8980 CJ; G8987 GO CL; G8988 GO CK; G8989 CJ; J1815; J2270; J7030

== ENCOUNTER → 2018-05-16 | Emergency (ER) | payer OTHER ==
[~2018-05-16] VITALS: Ht 165.1 cm; Wt 165.5 kg
[~2018-05-16] MED LIST changes: +CIPRO500 MG PO; +ZOFRAN ODT4 MG PO
[2018-05-16 16:42] LABS: BASOPHIL (%) 0.6 % (0-1); BASOPHIL COUNT 0.1 K/uL (0-0.1); EOSINOPHIL (%) 1.6 % (0-5); EOSINOPHIL COUNT 0.1 K/uL (0-0.3); HEMATOCRIT 31.8 % (36.0-46.0); HEMOGLOBIN 10.4 G/DL (11.9-15.5); IMMATURE GRANULOCYTE (%) 0.2 % (0.0-0.7); LYMPHOCYTE (%) 14.6 % (15-42); LYMPHOCYTE COUNT 1.2 K/uL (1.0-2.8); MCH 28.1 PG (29.0-34.0); MCHC 32.7 G/DL (30.0-36.0); MCV 85.9 FL (83-99); MONOCYTE (%) 5.5 % (3-12); MONOCYTE COUNT 0.5 K/uL (0-0.8); NEUTROPHIL (%) 77.5 % (45-76); NEUTROPHIL COUNT 6.5 K/uL (1.8-6.4); PLATELET COUNT 275 K/uL (156-360); RBC DIS.WIDTH-CV 14.9 % (11.8-14.6); WHITE BLOOD COUNT 8.3 K/uL (4.1-10.2)
[2018-05-16 16:53] LABS: ALBUMIN 3.5 g/dL (3.2-4.8); CHLORIDE 104 mEq/L (99-109); POTASSIUM 3.7 mEq/L (3.7-5.4); SODIUM 139 mEq/L (136-147)
[2018-05-16 16:56] LABS: GLUCOSE 115 mg/dL (70-99)
[2018-05-16 16:57] LABS: TOTAL BILIRUBIN 0.6 mg/dL (0.0-1.0)
[2018-05-16 16:59] LABS: ALKALINE PHOSPHATASE 111 IU/L (3-129); CREATININE 1.3 mg/dL (0.6-1.3); GFR ESTIMATE (CALCULATED) 45 mL/min/
[2018-05-16 17:00] LABS: UREA NITROGEN (BUN) 15 mg/dL (9-23)
[2018-05-16 17:01] LABS: AST (GOT) 16 IU/L (2-34)
[2018-05-16 17:02] LABS: ALT (GPT) 8 IU/L (3-49); TROP-I INTERPRETATION NEGATIVE; TROPONIN-I 0.03 ng/mL (0.0-0.30)
[2018-05-16 19:07] VITALS: BP 179/70
== END | disposition home or self-care (01) ==
LOC: EME 15:33
PROVIDERS: Emergency Medicine
DX: R06.00 Dyspnea, unspecified (principal); I11.0 Hypertensive heart disease with heart failure; L30.9 Dermatitis, unspecified; R11.2 Nausea with vomiting, unspecified; R19.7 Diarrhea, unspecified; R94.31 Abnormal electrocardiogram [ECG] [EKG]; I50.9 Heart failure, unspecified; E78.5 Hyperlipidemia, unspecified; E11.9 Type 2 diabetes mellitus without complications; Z79.4 Long term (current) use of insulin; Z79.82 Long term (current) use of aspirin; Z85.42 Personal history of malignant neoplasm of other parts of uterus; Z90.710 Acquired absence of both cervix and uterus
CPT/HCPCS: 71045; 80053; 83880; 84484; 85025; 93005; 99281; 99285; J1940; J2405; J7040